=== PATIENT | female | born 1965 | race Caucasian/White ===

== ENCOUNTER 2023-08-14 21:04 | Inpatient (IN) | payer OTHER, MEDICAID, SELFPAY ==
[2023-08-14 21:16] VITALS: BP 186/82; PULSE 94; RESP 18; TEMP 36.9; O2SAT 99; BMI 26.5
--- NOTE | 2023-08-14 21:41 | DI.RAD.S_ITS ---
PROCEDURE: XR FOOT RT MIN 3V INDICATIONS: redness/drainage/wound to great toe right foot TECHNIQUE: 3 views of the foot were acquired. COMPARISON: None. FINDINGS: Bones: No fractures or dislocations. No suspicious bony lesions. Plantar calcaneal spur present Soft tissues: No tibiotalar joint effusion. Diffuse soft tissue swelling about the foot IMPRESSION: No acute osseous abnormality. If symptoms persist, follow-up radiographs and/or CT or MRI may be helpful for further evaluation. Dictated by: Carmelo Guan M.D. on 08/14/2023 at 22:32 Approved by: Carmelo Guan M.D. on 08/14/2023 at 22:34
[2023-08-14 23:02] VITALS: O2SAT 97
[2023-08-14 23:03] VITALS: BP 201/93; PULSE 105; O2SAT 97
--- NOTE | 2023-08-14 23:06 | ED_ITS ---
HPI - Extremity Injury (Lower) General Chief Complaint: Extremity Injury, Lower Stated Complaint: rt foot issues, diabetic Time Seen by Provider: 08/14/23 21:17 Source: patient Mode of arrival: Ambulatory History of Present Illness HPI Narrative: 58-year-old female nonsmoker with history of diabetes and peripheral neuropathy presents for evaluation of worsening right foot infection. She states that she bought a new pair shoes about a month ago and they were slightly undersized she developed a blister on her right great toe which subsequently became infected. She had developed some sloughing of the skin with increasing redness of the toe and was seen at an outside clinic on 08/09 and has been taking Augmentin ever since. She states that over the past few days she is started feeling fatigued with fever and chills. She is developed redness on the top of her foot and working its way up her lower leg. She went to the clinic today and was sent here for further evaluation. She states that she had some shortness of breath when in the waiting room that seemed to get worse when she laid flat for the x- rays Related Data Allergies Allergy/AdvReac Type Severity Reaction Status Date / Time levothyroxine Allergy Intermediate Muscle Pain Verified 08/14/23 21:35 Review of Systems Review of Systems Narrative: GENERAL: See HPI HEENT: Denies sinus pain, ear pain, sore throat, difficulty swallowing, dizziness. RESPIRATORY: See HPI CARDIOVASCULAR: Denies chest pain, palpitations, orthopnea, edema, GASTROINTESTINAL: Denies nausea, vomiting, abdominal pain, diarrhea, constipation, melena. : Denies dysuria, frequency, incontinence, hematuria, urinary retention. MUSCULOSKELETAL: denies weakness, joint pain, or bony pain SKIN: See HPI NEUROLOGIC: Denies weakness, headache, numbness, change in speech, confusion, seizures, incoordination. PSYCHIATRIC: No concerning psychosocial issues. 12 point review of systems is negative except for those stated above Patient History Medical History Retinopathy Neuropathy Hypothyroidism Diabetes Social History Smoking Status: Never smoker Smoking Status: Never smoker Substance Use Type: does not use Exam Narrative Exam Narrative: GENERAL: [58] year old patient appears stated age. Well-developed patient, in mild distress. HEAD: Atraumatic. Normocephalic. EYES: Pupils equal round and reactive. Extraocular motions intact. No scleral icterus. No injection or drainage. ENT: Nose without bleeding, purulent drainage. Throat without erythema, tonsillar hypertrophy or exudate. Airway patent. NECK: Trachea midline. Non tender CARDIOVASCULAR: Regular rate and rhythm without murmurs, gallops, or rubs. RESPIRATORY: Clear to auscultation. Breath sounds equal bilaterally. No wheezes, rales, or rhonchi. GASTROINTESTINAL: Abdomen soft, non-tender, nondistended. EXTREMITIES: 1+ pitting edema bilateral lower extremities, right great toe with sloughing of the skin, decreased sensation, minimal drainage surrounding erythema on the dorsum of the foot and portions of the lower leg, no significant erosions or exposure of muscle or bone BACK: Nontender without deformity or crepitance. No flank tenderness. NEURO: AOx3. SKIN: No rash or erythema of visible areas Initial Vital Signs Initial Vital Signs: Vital Signs Temperature 98.5 F 08/14/23 21:16 Pulse Rate 94 H 08/14/23 21:16 Respiratory Rate 18 08/14/23 21:16 Blood Pressure 186/82 H 08/14/23 21:16 Pulse Oximetry 99 08/14/23 21:16 Oxygen Delivery Method Room Air 08/14/23 21:16 Course Orders Ordered: ED Orders 08/14/23 21:40 Wound Culture and Gram Stain Stat 08/14/23 21:41 XR foot RT min 3V Stat 08/14/23 23:04 EKG-12 Lead Stat 08/14/23 23:12 A1C [Hemoglobin A1C% w Est Avg Glu] Stat C-Reactive Protein Quant Stat Complete Blood Count AUTO DIFF Stat Comprehensive Metabolic Panel Stat D Dimer Stat Erythrocyte Sedimentation Rate Stat Lactate (Lactic Acid) Stat Magnesium Stat NT-proBNP (BNP-Adult 18+) Stat Procalcitonin Stat Troponin & CK Cardiac Panel Stat 08/14/23 23:25 Blood Culture Stat 08/14/23 23:52 Chest [XR chest 1V] Stat 08/15/23 00:23 Urine Microscopic Stat 08/15/23 00:31 CT angio chest PE protocol Stat Discontinued Medications Furosemide (Furosemide 40 Mg/4 Ml Vial) 40 mg IV NOW ONE Stop: 08/15/23 00:29 Last Admin: 08/15/23 00:31 Dose: 40 mg Documented By: Piperacillin Sod/Tazobactam (Sod 4.5 gm/ Sodium Chloride) 100 mls @ 200 mls/hr IV NOW ONE Stop: 08/14/23 23:04 Last Infusion: 08/15/23 00:03 Dose: Infused Documented By: Admin: 08/14/23 23:28 Dose: 200 mls/hr Documented By: Vancomycin HCl/Dextrose (Vancomycin) 1,500 mg in 300 mls @ 200 mls/hr IV NOW ONE Stop: 08/15/23 00:32 Last Admin: 08/15/23 00:04 Dose: 200 mls/hr Documented By: Sodium Chloride (Normal Saline 0.9%) 1,973.13 mls @ 657.71 mls/hr 30 ml/kg infuse over 3 hr (1973.13 ml) IV NOW ONE Stop: 08/15/23 02:02 Last Infusion: 08/15/23 00:32 Dose: Infused Documented By: Infusion: 08/15/23 00:31 Dose: 0 mls/hr Documented By: Admin: 08/14/23 23:10 Dose: 657.71 mls/hr Documented By: Vital Signs Vital signs: Vital Signs - 8 hr 08/14/23 21:16 08/14/23 23:02 08/14/23 23:03 Temperature 98.5 F Pulse Rate 94 H Respiratory Rate 18 Blood Pressure 186/82 H 201/93 H Pulse Oximetry 99 97 Oxygen Delivery Method Room Air Oxygen Flow Rate 08/14/23 23:03 08/14/23 23:16 08/14/23 23:30 Temperature 99.1 F Pulse Rate 105 H 105 H Respiratory Rate Blood Pressure Pulse Oximetry 97 98 Oxygen Delivery Method Oxygen Flow Rate 08/14/23 23:31 08/14/23 23:31 08/15/23 00:00 Temperature Pulse Rate 106 H 113 H Respiratory Rate 20 27 H Blood Pressure 184/86 H Pulse Oximetry 98 96 Oxygen Delivery Method Room Air Oxygen Flow Rate 08/15/23 00:00 08/15/23 00:05 08/15/23 00:27 Temperature Pulse Rate Respiratory Rate 26 H Blood Pressure 173/82 H 198/87 H Pulse Oximetry 88 L Oxygen Delivery Method Room Air Oxygen Flow Rate 08/15/23 00:27 08/15/23 00:30 08/15/23 00:30 Temperature Pulse Rate 117 H 120 H Respiratory Rate 33 H 34 H Blood Pressure 189/83 H Pulse Oximetry 96 93 Oxygen Delivery Method Nasal Cannula Oxygen Flow Rate 2 08/15/23 01:20 08/15/23 01:22 08/15/23 01:22 Temperature Pulse Rate 120 H 115 H Respiratory Rate 24 Blood Pressure 193/91 H Pulse Oximetry 99 100 Oxygen Delivery Method Nasal Cannula Oxygen Flow Rate 2 08/15/23 01:30 08/15/23 01:30 08/15/23 01:45 Temperature Pulse Rate 112 H 113 H Respiratory Rate 21 23 Blood Pressure 184/88 H Pulse Oximetry 99 95 Oxygen Delivery Method Nasal Cannula Room Air Oxygen Flow Rate 2 MDM - Extremity Injury (Lower) Lab Data 08/14/23 23:12 08/14/23 23:12 Labs: Lab Results 08/14/23 08/15/23 Range/Units 23:12 00:23 WBC 11.8 H (4.5-11.0) X10^3/uL RBC 3.77 L (4.0-5.2) X10^6/uL Hgb 10.4 L (12.0-16.0) g/dL Hct 31.0 L (36-46) % MCV 82.4 (80-100) fL MCH 27.5 (26-34) PG MCHC 33.4 (30-36) % RDW 13.8 (11.6-14.8) % Plt Count 292 (150-400) X10^3/uL Neut % (Auto) 72.3 (50-75) % Lymph % (Auto) 18.7 L (25-40) % [place] % (Auto) 7.1 (3-14) % Eos % (Auto) 0.8 L (2-4) % Baso % (Auto) 1.1 (0-2) % Neut # (Auto) 8600 H (7442-2006) /uL Lymph # (Auto) 2200 (7694-8245) /uL [place] # (Auto) 800 (0-900) /uL Eos # (Auto) 100 (0-450) /uL Baso # (Auto) 100 (0-100) /uL ESR 80 H (0-20) MM/HR D-Dimer 615 H (<500) ng/ml Sodium 134 L (137-145) mmol/L Potassium 4.6 (3.4-5.1) mmol/L Chloride 97 L (98-107) mmol/L Carbon Dioxide 28 (22-32) mmol/L BUN 28 H (7-17) mg/dL Creatinine 0.85 (0.52-1.04) mg/dL Estimated GFR > 60 (>60) mL/min BUN/Creatinine Ratio 32.9 H (6-22) Glucose 131 H (80-110) mg/dL Lactate 1.1 (0.7-2.1) mmol/L Calcium 9.2 (8.4-10.2) mg/dL Magnesium 1.9 (1.6-2.3) mg/dL Total Bilirubin 0.2 (0.2-1.3) mg/dL AST 20 (14-36) IU/L ALT 27 (<35) IU/L Alkaline Phosphatase 106 (38-126) U/L Total Creatine Kinase 25 L (30-135) U/L Troponin I < 0.012 (0.01-0.034) ng/mL C-Reactive Protein 4.6 H (<1.0) mg/dL NT-Pro-B Natriuret Pep 718 H (<125) pg/mL Total Protein 7.2 (6.3-8.2) g/dL Albumin 3.6 (3.5-5.0) g/dL Globulin 3.6 (1.7-4.1) g/dL Albumin/Globulin Ratio 1.0 (1.0-2.8) Procalcitonin 0.12 (<0.5) ng/mL Urine RBC None seen (0-5/HPF) Urine WBC None seen (0-5/HPF) Ur Squamous Epith Cells 0-1 /hpf (0-5/HPF) Urine Bacteria None seen (None) Ur Culture Indicated? Cult not indicated Point of Care Testing Glucose POC 185 Urine Dip Bedside Urine Glucose Negative Bedside Urine Bilirubin - Negative Bedside Urine Ketone - Negative Urine Specific [place] 1.015 Bedside Urine Occult Blood - Negative Bedside Urine pH 6 Bedside Urine Protein + 30 Bedside Urine Urobilinogen - Negative Bedside Urine Nitrite - Negative Bedside Urine Leukocytes - Negative Esterase MDM Narrative Medical decision making narrative: [58] year old patient presents with worsening infectious process of the right great toe and foot despite outpatient therapy Multiple etiologies for patient's symptoms considered including, but not limited to: [Osteomyelitis versus cellulitis versus pneumonia versus CHF versus PE versus other] Prior Charts reviewed in our EMR Primary Historian: patient Labs reviewed and interpreted by myself: Slight leukocytosis with relative left shift, slight elevation in BNP, D-dimer is slightly above cutoff inflammatory markers elevated Imaging reviewed:, x-ray of toe shows no obvious osteomyelitis or subcu air, chest x-ray consistent with pulmonary edema, CT angiogram of chest shows no PE but some evidence of pulmonary edema Consultations: Discussed with hospitalist Patient requires hospitalization for treatment of worsening right great toe and foot cellulitis despite outpatient therapies, no obvious osteomyelitis or abscess but she will require hospitalization with IV antibiotics. Over the course of the visit she became increasingly short of breath which is likely due to fluid administration. Sepsis fluids were held, she was diuresed and showed improvement. CT angiogram performed and there is no evidence of pulmonary embolism or focal infiltrate Discharge Plan Departure Patient Disposition: Admitted As Inpatient Clinical Impression: Cellulitis of foot, right, Failure of outpatient treatment Admit Date/Time: 08/15/23 02:16
[2023-08-14] MEDS: SODIUM CHLORIDE 0.9% 1,973.13 ML 657.71 ML IV (23:10)
[2023-08-14 23:16] VITALS: TEMP 37.3
[2023-08-14 23:22] LABS: Add Manual Diff / Slide Review NO; Basophils Absolute Auto 100 /uL (0-100); Basophils Percent Auto 1.1 % (0-2); Eosinophils Absolute Auto 100 /uL (0-450); Eosinophils Percent Auto 0.8 % (2-4); Hemoglobin 10.4 g/dL (12.0-16.0); Lymphocytes Absolute Auto 2200 /uL (1100-4500); Lymphocytes Percent Auto 18.7 % (25-40); Mean Corpuscular HGB Conc 33.4 % (30-36); Mean Corpuscular Hemoglobin 27.5 PG (26-34); Mean Corpuscular Volume 82.4 fL (80-100); Monocytes Absolute Auto 800 /uL (0-900); Monocytes Percent Auto 7.1 % (3-14); Neutrophils Absolute Auto 8600 /uL (1500-7000); Neutrophils Percent Auto 72.3 % (50-75); Platelet Count 292 X10^3/uL (150-400); Red Blood Cell Count 3.77 X10^6/uL (4.0-5.2); Red Cell Distribution Width 13.8 % (11.6-14.8); White Blood Cell Count 11.8 X10^3/uL (4.5-11.0)
[2023-08-14] MEDS: PIPERACILLIN/TAZO 4.5 GM in SODIUM CHLORIDE 0.9% 100 ML IV (23:28)
[2023-08-14 23:30] VITALS: PULSE 105; O2SAT 98
[2023-08-14 23:31] VITALS: BP 184/86; PULSE 106; RESP 20; O2SAT 98
[2023-08-14 23:33] LABS: Alanine Aminotransferase 27 IU/L (<35); Albumin 3.6 g/dL (3.5-5.0); Alkaline Phosphatase 106 U/L (38-126); Aspartate Aminotransferase 20 IU/L (14-36); BUN Creatinine Ratio 32.9 (6-22); Bilirubin Total 0.2 mg/dL (0.2-1.3); Blood Urea Nitrogen 28 mg/dL (7-17); Calcium 9.2 mg/dL (8.4-10.2); Carbon Dioxide 28 mmol/L (22-32); Chloride 97 mmol/L (98-107); Creatine Kinase 25 U/L (30-135); Estimated Glomerular Filt Rate > 60 mL/min (>60); Globulin 3.6 g/dL (1.7-4.1); Glucose 131 mg/dL (80-110); HEMOLYSIS < 15 (0-50); Magnesium 1.9 mg/dL (1.6-2.3); Potassium 4.6 mmol/L (3.4-5.1); Sodium 134 mmol/L (137-145); Total Protein 7.2 g/dL (6.3-8.2)
[2023-08-14 23:34] LABS: Lactate (Lactic Acid) 1.1 mmol/L (0.7-2.1)
[2023-08-14 23:36] LABS: D Dimer 615 ng/ml (<500)
--- NOTE | 2023-08-14 23:44 | PC.NURSE ---
Pt's right leg redness marked with skin marker. Time and dated. Pedal pulses dopplered and marked bilaterally.
[2023-08-14 23:45] LABS: NT-proBNP (BNP-Adult 18+) 718 pg/mL (<125); Troponin I < 0.012 ng/mL (0.01-0.034)
[2023-08-14 23:46] LABS: Erythrocyte Sedimentation Rate 80 MM/HR (0-20)
[2023-08-14 23:50] LABS: Procalcitonin 0.12 ng/mL (<0.5)
--- NOTE | 2023-08-14 23:52 | DI.RAD.S_ITS ---
PROCEDURE: XR CHEST 1V INDICATIONS: Shortness of breath TECHNIQUE: One view of the chest was acquired. COMPARISON: None. FINDINGS: Surgical changes and devices: None. Lungs and pleura: Bilateral interstitial and hazy bibasilar opacities. No pleural effusion or pneumothorax Mediastinum: Cardiac silhouette is enlarged Bones and chest wall: No suspicious bony lesions. Overlying soft tissues appear unremarkable. IMPRESSION: Findings compatible with fluid overload/CHF. Viral or atypical infection can result in similar appearing pulmonary opacities Dictated by: Carmelo Guan M.D. on 08/15/2023 at 0:29 Approved by: Carmelo Guan M.D. on 08/15/2023 at 0:31
[2023-08-15] VITALS (17 sets, daily range): BP systolic 113–198; BP diastolic 59–92; PULSE 59–120; RESP 16–34; TEMP 36.4–37; O2SAT 88–100; BMI 27.3
[2023-08-15] MEDS: VANCOMYCIN 1,500 MG/300 ML PIGGYBACK 200 MG IV (00:04)
[2023-08-15 00:13] LABS: C-Reactive Protein Quant 4.6 mg/dL (<1.0)
[2023-08-15] MEDS: FUROSEMIDE 40 MG/4 ML VIAL IV ×3 (00:31→21:01)
--- NOTE | 2023-08-15 00:31 | DI.CT.S_ITS ---
PROCEDURE: CT ANGIO CHEST PE PROTOCOL INDICATIONS: Shortness of breath, critical Dimer TECHNIQUE: After the administration of intravenous contrast, 2 mm thick sections acquired from the pulmonary apices to the posterior costophrenic angles. 3-dimensional maximum intensity projection (MIP) coronal and sagittal reformats were then acquired through the thorax. For radiation dose reduction, the following was used: automated exposure control, adjustment of mA and/or kV according to patient size. COMPARISON: None. FINDINGS: Pulmonary arteries: The main pulmonary artery is enlarged measuring 3.1 cm. No pulmonary embolism identified. Lungs and pleura: Interlobular septal thickening and mild basilar predominant ground-glass opacities. No pleural effusion. Few pulmonary nodules present for example an 8 mm nodule at the lingula (5/148) Mediastinum: No pericardial effusion. Possible cardiomegaly. Possible wall thickening mid and lower esophagus. Bones and chest wall: Multilevel degenerative change of the visualized spine. Abdomen: Visualized upper abdominal solid organs appear normal in the early arterial phase of enhancement. IMPRESSION: 1. No pulmonary embolism identified. 2. Enlargement of the main pulmonary artery, a finding which can be seen in the setting of pulmonary hypertension. 3. Findings compatible with pulmonary edema. 4. Few pulmonary nodules are present. Follow-up CT chest recommended in 3-6 months per Fleischner society guidelines. 5. Possible wall thickening mid and lower esophagus, nonspecific, correlation for etiologies such as reflux esophagitis may be helpful Dictated by: Carmelo Guan M.D. on 08/15/2023 at 1:40 Approved by: Carmelo Guan M.D. on 08/15/2023 at 1:51
--- NOTE | 2023-08-15 00:44 | PC.NURSE ---
This RN was discontinuing zosyn and preparing to administer vancomyocin, when pt began to c/o worsening shortness of breath. Pt noted to be tachypneic, reports she is unable to lay down or sit up comfortably due to shortness of breath and tightness in abdomen. This RN immediately stopped IV fluid bolus. Oxygen placed 2L nasal cannula due to patient desating to 88%. HR increasing to 110s. Pt has received a total of 1L. Slight crackles noted in bases. Pt also noted to have some abdominal distention. RN notified provider. Lasix ordered and administered per DEC. Provider to the bedside to assess patient as well. Pt standing at the bedside. Refusing to lay on stretcher. Pt remains in view of RN station.
[2023-08-15 00:53] LABS: Bacteria Urine None Seen; Culture Indicated Urine Cult Not Indicated; RBC Urine None Seen (0-5/HPF); Squamous Epithelial Cell Urine 0-1 /HPF (0-5/HPF); WBC Urine None Seen (0-5/HPF)
--- NOTE | 2023-08-15 01:24 | PC.NURSE ---
Pt assisted back to bed after CT scan. Pt reports shortness of breath is much better at this time after episodes of diuresing. Pt able to lay on stretcher with HOB elevated. Call light remains in reach. Continues to be on 2L nasal cannula for comfort. Updated on plan of care. Declines any other needs.
[2023-08-15] MEDS: ACETAMINOPHEN 325 MG TABLET 975 MG PO (02:25)
--- NOTE | 2023-08-15 04:03 | PM.HP.1 ---
History of Present Illness History of Present Illness Date Patient Seen: 08/15/23 Time Patient Seen: 04:04 Chief complaint: rt foot issues, diabetic Narrative: The pt is a 58 yo poorly controlled diabetic who started having a blister on the outside of the her great toe about one month ago. She started to feel weak, chills and myalgias on the of this month and went to her local ER, [facility]. They said she was dehydrated and gave her some fluids and told her her blood sugars were way too high. She soaked the foot one day due to worsening swelling and said the blister and some tissue came off. She then went to an urgent care on the where she was started on augmentin which she has been taking. The whole foot now has become red and swollen she came to our ER tonight for evaluation. The pt has numbness in the foot, denies tobacco use, normally walks without assitive devices and her last A1C was >14 last month. [facility] Medical History Retinopathy Neuropathy Hypothyroidism Diabetes Social History household members: none Smoking Status: Never smoker alcohol intake: never Meds Home Medications and Allergies Home Medications Medication Instructions Recorded Confirmed Type B Complex-Vitamin B12 See Protocol PO DAILY 08/15/23 08/15/23 History [place]'s wort 300 mg tablet 300 mg PO DAILY 08/15/23 08/15/23 History insulin glargine 100 unit/mL (3 20 unit SUBCUT ONCE PM 08/15/23 08/15/23 History mL) subcutaneous pen (Lantus Solostar U-100 Insulin) insulin lispro 200 unit/mL (3 mL) See Protocol SUBCUT ACHS 08/15/23 08/15/23 History subcutaneous pen (Humalog KwikPen U-200 Insulin) metformin 500 mg tablet 500 mg PO BID 08/15/23 08/15/23 History thyroid (pork) 90 mg tablet 90 mg PO DAILY 08/15/23 08/15/23 History ([place] Thyroid) Allergies Allergy/AdvReac Type Severity Reaction Status Date / Time levothyroxine Allergy Intermediate Muscle Pain Verified 08/14/23 21:35 Exam Vital Signs (past 8 hours): - 08/14/23 21:16 08/14/23 23:02 08/14/23 23:03 Temperature 98.5 F Pulse Rate 94 H Respiratory Rate 18 Blood Pressure 186/82 H 201/93 H Pulse Oximetry 99 97 Oxygen Delivery Method Room Air Oxygen Flow Rate 08/14/23 23:03 08/14/23 23:16 08/14/23 23:30 Temperature 99.1 F Pulse Rate 105 H 105 H Respiratory Rate Blood Pressure Pulse Oximetry 97 98 Oxygen Delivery Method Oxygen Flow Rate 08/14/23 23:31 08/14/23 23:31 08/15/23 00:00 Temperature Pulse Rate 106 H 113 H Respiratory Rate 20 27 H Blood Pressure 184/86 H Pulse Oximetry 98 96 Oxygen Delivery Method Room Air Oxygen Flow Rate 08/15/23 00:00 08/15/23 00:05 08/15/23 00:27 Temperature Pulse Rate Respiratory Rate 26 H Blood Pressure 173/82 H 198/87 H Pulse Oximetry 88 L Oxygen Delivery Method Room Air Oxygen Flow Rate 08/15/23 00:27 08/15/23 00:30 08/15/23 00:30 Temperature Pulse Rate 117 H 120 H Respiratory Rate 33 H 34 H Blood Pressure 189/83 H Pulse Oximetry 96 93 Oxygen Delivery Method Nasal Cannula Oxygen Flow Rate 2 08/15/23 01:20 08/15/23 01:22 08/15/23 01:22 Temperature Pulse Rate 120 H 115 H Respiratory Rate 24 Blood Pressure 193/91 H Pulse Oximetry 99 100 Oxygen Delivery Method Nasal Cannula Oxygen Flow Rate 2 08/15/23 01:30 08/15/23 01:30 08/15/23 01:44 Temperature Pulse Rate 112 H 117 H Respiratory Rate 21 17 Blood Pressure 184/88 H Pulse Oximetry 99 93 Oxygen Delivery Method Nasal Cannula Oxygen Flow Rate 2 08/15/23 01:44 08/15/23 01:45 08/15/23 02:00 Temperature Pulse Rate 113 H Respiratory Rate 23 Blood Pressure 166/79 H Pulse Oximetry 95 96 Oxygen Delivery Method Room Air Oxygen Flow Rate 08/15/23 02:12 08/15/23 02:12 08/15/23 02:30 Temperature Pulse Rate 113 H Respiratory Rate 17 Blood Pressure 177/79 H 187/81 H Pulse Oximetry 97 Oxygen Delivery Method Oxygen Flow Rate 08/15/23 02:30 08/15/23 02:40 08/15/23 03:32 Temperature 97.7 F Pulse Rate 111 H 111 H Respiratory Rate 21 Blood Pressure 184/90 H Pulse Oximetry 97 96 Oxygen Delivery Method Room Air Room Air Oxygen Flow Rate 0 Oxygen Delivery Method Room Air Oxygen Flow Rate 0 Const General: cooperative and comfortable Resp Auscultation: clear to auscultation bilaterally Cardio Rate: regular rate Rhythm: regular rhythm GI Inspection: obesity Auscultation: normal bowel sounds Skin Other: Rt great toe with erythema extending dorsally onto the foot and ankle Extrem General: full ROM and edema Objective Labs 08/14/23 23:12 08/14/23 23:12 Labs: Laboratory Results - last 24 hr 08/14/23 08/15/23 23:12 00:23 WBC 11.8 H RBC 3.77 L Hgb 10.4 L Hct 31.0 L MCV 82.4 MCH 27.5 MCHC 33.4 RDW 13.8 Plt Count 292 Neut % (Auto) 72.3 Lymph % (Auto) 18.7 L [place] % (Auto) 7.1 Eos % (Auto) 0.8 L Baso % (Auto) 1.1 Neut # (Auto) 8600 H Lymph # (Auto) 2200 [place] # (Auto) 800 Eos # (Auto) 100 Baso # (Auto) 100 ESR 80 H D-Dimer 615 H Sodium 134 L Potassium 4.6 Chloride 97 L Carbon Dioxide 28 BUN 28 H Creatinine 0.85 Estimated GFR > 60 BUN/Creatinine Ratio 32.9 H Glucose 131 H Lactate 1.1 Calcium 9.2 Magnesium 1.9 Total Bilirubin 0.2 AST 20 ALT 27 Alkaline Phosphatase 106 Total Creatine Kinase 25 L Troponin I < 0.012 C-Reactive Protein 4.6 H NT-Pro-B Natriuret Pep 718 H Total Protein 7.2 Albumin 3.6 Globulin 3.6 Albumin/Globulin Ratio 1.0 Procalcitonin 0.12 Urine RBC None seen Urine WBC None seen Ur Squamous Epith Cells 0-1 /hpf Urine Bacteria None seen Ur Culture Indicated? Cult not indicated Assessment & Plan Assessment and plan (1) Cellulitis of foot, right: Status: Acute (2) Diabetic foot ulcer associated with diabetes mellitus due to underlying condition: Status: Acute Plan WIll admit the pt to the hospitalist service, she was started on vancomycin and zosyn in the ER which we will continue, pharmacy to dose the vanco, will monitor for toxicities of the abx, on consistent carb diet, accuchecks QAC & HS, insulin high does sliding scale, checking A1C currently. Will reassess in am but may need general surgery to see for possible debridement. I spoke with the ER provider and agree with admission, labs reviewed, with a WBC of 11, normal electrolytes.
--- NOTE | 2023-08-15 04:05 | PC.WOUNDPHOT ---
^ border drawn in ED
[2023-08-15] MEDS: PIPERACILLIN/TAZO 4.5 GM in SODIUM CHLORIDE 0.9% 100 ML IV ×3 (04:44→20:57)
[2023-08-15] MEDS: PANTOPRAZOLE DR 20 MG TABLET PO (05:01)
[2023-08-15 05:10] LABS: Add Manual Diff / Slide Review NO; Basophils Absolute Auto 100 /uL (0-100); Basophils Percent Auto 0.4 % (0-2); Eosinophils Absolute Auto 100 /uL (0-450); Eosinophils Percent Auto 0.5 % (2-4); Hematocrit 32.7 % (36-46); Hemoglobin 10.8 g/dL (12.0-16.0); Lymphocytes Absolute Auto 1700 /uL (1100-4500); Lymphocytes Percent Auto 14.4 % (25-40); Mean Corpuscular HGB Conc 33.1 % (30-36); Mean Corpuscular Hemoglobin 27.4 PG (26-34); Mean Corpuscular Volume 82.9 fL (80-100); Monocytes Absolute Auto 800 /uL (0-900); Monocytes Percent Auto 6.9 % (3-14); Neutrophils Absolute Auto 9400 /uL (1500-7000); Neutrophils Percent Auto 77.8 % (50-75); Platelet Count 285 X10^3/uL (150-400); Red Blood Cell Count 3.94 X10^6/uL (4.0-5.2); Red Cell Distribution Width 13.4 % (11.6-14.8); White Blood Cell Count 12.1 X10^3/uL (4.5-11.0)
[2023-08-15 05:27] LABS: BUN Creatinine Ratio 36.8 (6-22); Blood Urea Nitrogen 25 mg/dL (7-17); Calcium 8.6 mg/dL (8.4-10.2); Carbon Dioxide 28 mmol/L (22-32); Chloride 97 mmol/L (98-107); Estimated Glomerular Filt Rate > 60 mL/min (>60); Glucose 208 mg/dL (80-110); HEMOLYSIS < 15 (0-50); Sodium 136 mmol/L (137-145)
--- NOTE | 2023-08-15 05:37 | PC.ADMIT ---
Patient arrived onto the floor from ED approximately 0300. Patient is AxOx4, denies pain, SOB, N/V. Hypertensive (184/90), tachycardic (111), O2 sats 96% on RA. Patient received lasix in the ED, voided approximately 4 L since. BLE pitting edema 4+, R-leg redness contained within drawn border, R-toe open to air. Wound photos uploaded. Patient is SBA, tolerates ambulation well. IV abx infusing. Educated patient on use of call light and oriented to room, patient verbalized understanding, call light within reach. [id number] Admission Note: The patient,Mireille Joyce,58 y/o, was given written information regarding hospital policies, unit procedures and contact persons. Patient's smoking status: Never smoker. Vital Signs - 8 hr 08/14/23 23:02 08/14/23 23:03 08/14/23 23:03 Temperature Pulse Rate 105 H Respiratory Rate Blood Pressure 201/93 H Pulse Oximetry 97 97 Oxygen Delivery Method Oxygen Flow Rate 08/14/23 23:16 08/14/23 23:30 08/14/23 23:31 Temperature 99.1 F Pulse Rate 105 H Respiratory Rate Blood Pressure 184/86 H Pulse Oximetry 98 Oxygen Delivery Method Oxygen Flow Rate 08/14/23 23:31 08/15/23 00:00 08/15/23 00:00 Temperature Pulse Rate 106 H 113 H Respiratory Rate 20 27 H Blood Pressure 173/82 H Pulse Oximetry 98 96 Oxygen Delivery Method Room Air Oxygen Flow Rate 08/15/23 00:05 08/15/23 00:27 08/15/23 00:27 Temperature Pulse Rate 117 H Respiratory Rate 26 H 33 H Blood Pressure 198/87 H Pulse Oximetry 88 L 96 Oxygen Delivery Method Room Air Oxygen Flow Rate 08/15/23 00:30 08/15/23 00:30 08/15/23 01:20 Temperature Pulse Rate 120 H 120 H Respiratory Rate 34 H Blood Pressure 189/83 H Pulse Oximetry 93 99 Oxygen Delivery Method Nasal Cannula Oxygen Flow Rate 2 08/15/23 01:22 08/15/23 01:22 08/15/23 01:30 Temperature Pulse Rate 115 H Respiratory Rate 24 Blood Pressure 193/91 H 184/88 H Pulse Oximetry 100 Oxygen Delivery Method Nasal Cannula Oxygen Flow Rate 2 08/15/23 01:30 08/15/23 01:44 08/15/23 01:44 Temperature Pulse Rate 112 H 117 H Respiratory Rate 21 17 Blood Pressure 166/79 H Pulse Oximetry 99 93 Oxygen Delivery Method Nasal Cannula Oxygen Flow Rate 2 08/15/23 01:45 08/15/23 02:00 08/15/23 02:12 Temperature Pulse Rate 113 H Respiratory Rate 23 Blood Pressure 177/79 H Pulse Oximetry 95 96 Oxygen Delivery Method Room Air Oxygen Flow Rate 08/15/23 02:12 08/15/23 02:30 08/15/23 02:30 Temperature Pulse Rate 113 H 111 H Respiratory Rate 17 Blood Pressure 187/81 H Pulse Oximetry 97 97 Oxygen Delivery Method Room Air Oxygen Flow Rate 08/15/23 02:40 08/15/23 03:32 Temperature 97.7 F Pulse Rate 111 H Respiratory Rate 21 Blood Pressure 184/90 H Pulse Oximetry 96 Oxygen Delivery Method Room Air Oxygen Flow Rate 0
[2023-08-15 05:45] LABS: Hemoglobin A1C% w Est Avg Glu > 14.0 % (4.0-6.0)
[2023-08-15] MEDS: INSULIN LISPRO 100 UNIT/ML 3ML VIAL SUBCUT ×4 (08:06→21:27)
[2023-08-15] MEDS: ENOXAPARIN 40 MG/0.4 ML SYRINGE SUBCUT (08:07)
--- NOTE | 2023-08-15 09:15 | DI.ECHO.S_ITS ---
[facility] +---------+ : : [address] : : : : [id number] : : : : Phone: [phone]+ Echocardiogram Report + + :Name: TRINH FONTANEZ Study Date: 08/15/2023 Height: 62 in : :[facility] ReadingLocation: Weight: 149 lb : : Gender: Female BSA: 1.7 m2 : :: 1965 Age: 58 yrs BP: 175/92 mmHg: :Reason For Study: EDEMA, RULE OUT CONGESTIVE HEART FAILURE : :Ordering Physician: AMANDEEP, : :IRAIDA Miranda Performed By: Mica Bolivar : :Referring: IRAIDA BERNSTEIN : + + Interpretation Summary Normal sinus rhythm. Normal LV size and mildly increased wall thickness. Normal wall motion and LV systolic function. Ejection fraction 60-65%. Stage II diastolic dysfunction. There is aneurysmal interatrial septum but without obvious PFO based on color- flow Doppler. Normal chamber sizes. Aortic valve leaflets are mildly thickened and calcified. Otherwise there are no significant valvular abnormalities. No prior study available for comparison. Procedure: A two-dimensional transthoracic echocardiogram with color flow and Doppler was performed. The study quality was technically adequate. There is no prior echocardiogram noted for this patient. The patient was in sinus rhythm with heart rates between 62-68 bpm during the exam. Left Ventricle: The left ventricle is normal in size. There is mild concentric left ventricular hypertrophy. The ejection fraction is estimated to be 60-65%. Right Ventricle: The right ventricle is borderline dilated. The right ventricle is at the upper limits of normal in size. Atria: The left atrium is borderline dilated. Right atrial size is normal. There is no Doppler evidence for an interatrial shunt. The atrial septum is aneurysmal. Mitral Valve: There is mild mitral annular calcification. The mitral valve leaflets appear mildly thickened, but open well. There is trace mitral regurgitation. Aortic Valve: The aortic valve is trileaflet. The aortic valve opens well. The aortic valve is slightly calcified. There is no aortic valve stenosis. No aortic regurgitation is present. Tricuspid Valve: There is no tricuspid annular calcification. There is mild tricuspid regurgitation. Pulmonic Valve: The pulmonic valve leaflets are thin and pliable; valve motion is normal. There is no pulmonic valvular regurgitation. Great Vessels: The aortic root is normal size. The dimensions of the ascending aorta are normal. The IVC is dilated (diameter is greater than 2.1 cm) and it collapses less than 50% with a sniff. This suggests a high right atrial pressure of 15 mm Hg. Pericardium/ Pleura There is no pericardial effusion. There is no pleural effusion. MMode/2D Measurements & Calculations LVIDd: 4.5 cm LVOT diam: 2.0 cm LVIDs: 2.7 cm Ao root diam: 3.2 cm FS: 39.4 % asc Aorta Diam: 2.9 cm IVSd: 1.1 cm LVPWd: 1.00 cm LV freedman. diameter/BSA (cm/m^2): 2.7 LV sys. diameter/BSA (cm/m^2): 1.6 LA A2 area: 19.7 cm2 RA long axis: 4.7 cm LA A4 area: 18.4 cm2 RA area: 15.7 cm2 LA length (vol): 5.4 cm RA vol: 44.9 ml LA vol: 57.4 ml RA : 26.6 ml/m2 LA vol index: 34.0 ml/m2 IVC diam: 2.3 cm RVD1 (basal): 4.3 cm RVD2 (mid): 2.9 cm TAPSE: 2.7 cm Doppler Measurements & Calculations Ao V2 max: 186.9 cm/sec LVOT Max Zhang: 128.0 cm/sec Ao V2 mean: 145.0 cm/sec LV V1 max P.6 mmHg Ao max P.0 mmHg LV V1 VTI: 23.4 cm Ao mean P.0 mmHg SABIHA(I,D): 2.0 cm2 Ao V2 VTI: 37.5 cm SABIHA(V,D): 2.2 cm2 sev ratio: 0.62 SABIHA indexed to BSA (cm^2/m^2): 1.2 MV E max zhang: 122.5 cm/sec PA V2 max: 102.5 cm/sec MV A max zhang: 101.6 cm/sec PA V2 mean: 68.9 cm/sec MV E/A: 1.2 PA mean P.1 mmHg Med Peak E' Zhang: 6.0 cm/sec PA pr(Accel): 34.5 mmHg E/E' med: 20.3 Lat Peak E' Zhang: 7.3 cm/sec E/E' lat: 16.9 E/e' average: 18.6 MV dec time: 0.25 sec MVA(VTI): 1.6 cm2 MV V2 mean: 67.8 cm/sec SV(LVOT): 73.5 ml MV mean P.3 mmHg MV V2 VTI: 44.7 cm Electronically signed by: Cayla Richardson M.D. on Reading Physician:08/15/2023 03:16 PM
--- NOTE | 2023-08-15 09:16 | P.PN_ITS ---
Subjective Subjective Interval history: Right foot looks a little better, no pain or dyspnea. Odin had chronic edema. Exam Vital Signs (past 8 hours): - 08/15/23 01:20 08/15/23 01:22 08/15/23 01:22 Temperature Pulse Rate 120 H 115 H Respiratory Rate 24 Blood Pressure 193/91 H Pulse Oximetry 99 100 Oxygen Delivery Method Nasal Cannula Oxygen Flow Rate 2 08/15/23 01:30 08/15/23 01:30 08/15/23 01:44 Temperature Pulse Rate 112 H 117 H Respiratory Rate 21 17 Blood Pressure 184/88 H Pulse Oximetry 99 93 Oxygen Delivery Method Nasal Cannula Oxygen Flow Rate 2 08/15/23 01:44 08/15/23 01:45 08/15/23 02:00 Temperature Pulse Rate 113 H Respiratory Rate 23 Blood Pressure 166/79 H Pulse Oximetry 95 96 Oxygen Delivery Method Room Air Oxygen Flow Rate 08/15/23 02:12 08/15/23 02:12 08/15/23 02:30 Temperature Pulse Rate 113 H Respiratory Rate 17 Blood Pressure 177/79 H 187/81 H Pulse Oximetry 97 Oxygen Delivery Method Oxygen Flow Rate 08/15/23 02:30 08/15/23 02:40 08/15/23 03:32 Temperature 97.7 F Pulse Rate 111 H 111 H Respiratory Rate 21 Blood Pressure 184/90 H Pulse Oximetry 97 96 Oxygen Delivery Method Room Air Room Air Oxygen Flow Rate 0 08/15/23 08:00 Temperature 97.5 F L Pulse Rate 120 H Respiratory Rate 20 Blood Pressure 175/92 H Pulse Oximetry 96 Oxygen Delivery Method Oxygen Flow Rate Oxygen Delivery Method Room Air Oxygen Flow Rate 0 Narrative Exam Narrative: NAD Lungs clear with normal effort CV RRR without M/G/R Abdomen Soft, NT/ND No rash 2+ edema Right foot is red. Right great toe red. and has a large ulcer. Objective Labs 08/15/23 04:25 08/15/23 04:25 Labs: Laboratory Results - last 24 hr 08/14/23 08/15/23 08/15/23 23:12 00:23 04:25 WBC 11.8 H 12.1 H RBC 3.77 L 3.94 L Hgb 10.4 L 10.8 L Hct 31.0 L 32.7 L MCV 82.4 82.9 MCH 27.5 27.4 MCHC 33.4 33.1 RDW 13.8 13.4 Plt Count 292 285 Neut % (Auto) 72.3 77.8 H Lymph % (Auto) 18.7 L 14.4 L [place] % (Auto) 7.1 6.9 Eos % (Auto) 0.8 L 0.5 L Baso % (Auto) 1.1 0.4 Neut # (Auto) 8600 H 9400 H Lymph # (Auto) 2200 1700 [place] # (Auto) 800 800 Eos # (Auto) 100 100 Baso # (Auto) 100 100 ESR 80 H D-Dimer 615 H Sodium 134 L 136 L Potassium 4.6 4.0 Chloride 97 L 97 L Carbon Dioxide 28 28 BUN 28 H 25 H Creatinine 0.85 0.68 Estimated GFR > 60 > 60 BUN/Creatinine Ratio 32.9 H 36.8 H Glucose 131 H 208 H Hemoglobin A1c > 14.0 H Lactate 1.1 Calcium 9.2 8.6 Magnesium 1.9 Total Bilirubin 0.2 AST 20 ALT 27 Alkaline Phosphatase 106 Total Creatine Kinase 25 L Troponin I < 0.012 C-Reactive Protein 4.6 H NT-Pro-B Natriuret Pep 718 H Total Protein 7.2 Albumin 3.6 Globulin 3.6 Albumin/Globulin Ratio 1.0 Procalcitonin 0.12 Urine RBC None seen Urine WBC None seen Ur Squamous Epith Cells 0-1 /hpf Urine Bacteria None seen Ur Culture Indicated? Cult not indicated PFSH Medical History Retinopathy Neuropathy Hypothyroidism Diabetes Social History household members: none Smoking Status: Never smoker alcohol intake: never Assessment & Plan Assessment & Plan narrative: 1. Cellulitis of foot, right, POA: Status: Acute 2. Diabetic foot ulcer associated with diabetes mellitus due to underlying condition: Status: Acute 3. Leg and pulmonary edema, POA -Cont IV abx -Wound care -consider MRI foot -ECHO to assess LVEF -IV lasix for diuresis. Time Spent With Patient Time with patient: 30 to 49 minutes with 50% spent counseling/coordinating care
[2023-08-15] MEDS: VANCOMYCIN 750 MG/150 ML PIGGYBACK 150 MG IV ×2 (09:26→16:43)
[2023-08-15] MEDS: METOPROLOL IR 25 MG TABLET 12.5 MG PO (09:26)
[2023-08-15] MEDS: THYROID, PORK 30 MG TABLET 90 MG PO (09:26)
--- NOTE | 2023-08-15 10:44 | PC.NURSE ---
Addendum entered by Mckenna Rob R.N. 08/15/23 13:13: Photos taken after MD Perez at bedside to debride R great toe wound. Camera having trouble focusing. Took multiple photos, these were the clearest. ply bander and MD Perez at bedside and dressed wound with hydrafera blue dressing + optifoam. Asked that wound dressing be changed every 2 days. Original Note: Day shift: Notified MD Anglin of patient's hypertension and tachycardia. He ordered PO metoprolol - given to patient. Also sent home thyoid medication to pharmacy for patient to take while in the hospital.
--- NOTE | 2023-08-15 13:49 | P.CONS_ITS ---
History of Present Illness Consult details Date Patient Seen: 08/15/23 Time Patient Seen: 12:00 Chief complaint: rt foot issues, diabetic Narrative: The patient is a 58-year-old female with poorly controlled Diabetes mellitus and neuropathy who was admitted to the hospital earlier today with a right diabetic foot infection. She reports having an ulcer on her right great toe the 1st began as a blister about 1 month ago. The patient has taken some oral antibiotics without any significant improvement. She reports that the ulcer is tender however she has not noted any drainage from the area. She has noted redness and swelling of the right great toe and the dorsum of her right foot. The patient denies having any fever or chills. Patient has a good appetite and denies any other recent changes in her overall health. Hemoglobin A1c was> 14. The patient does not smoke cigarettes. She has no prior history of having any diabetic foot ulcers in the past. The patient does not use diabetic footwear. The patient was admitted to the hospital for IV antibiotic therapy and a wound care consult was ordered. Foot x-ray was negative for osteomyelitis. Meds Home Medications and Allergies Home Medications Medication Instructions Recorded Confirmed Type B Complex-Vitamin B12 See Protocol PO DAILY 08/15/23 08/15/23 History Cumings's wort 300 mg tablet 300 mg PO DAILY 08/15/23 08/15/23 History insulin glargine 100 unit/mL (3 20 unit SUBCUT ONCE PM 08/15/23 08/15/23 History mL) subcutaneous pen (Lantus Solostar U-100 Insulin) insulin lispro 200 unit/mL (3 mL) See Protocol SUBCUT ACHS 08/15/23 08/15/23 History subcutaneous pen (Humalog KwikPen U-200 Insulin) metformin 500 mg tablet 500 mg PO BID 08/15/23 08/15/23 History thyroid (pork) 90 mg tablet 90 mg PO DAILY 08/15/23 08/15/23 History (Vona Thyroid) Allergies Allergy/AdvReac Type Severity Reaction Status Date / Time levothyroxine Allergy Intermediate Muscle Pain Verified 08/14/23 21:35 Review of Systems Review of Systems Narrative: Negative for any recent changes in overall health Cardiovascular Comments: No chest pain Respiratory Comments: No shortness of breath Exam Vital Signs (past 8 hours): - 08/15/23 08:00 08/15/23 11:29 Temperature 97.5 F L Pulse Rate 120 H 65 Respiratory Rate 20 Blood Pressure 175/92 H 113/65 Pulse Oximetry 96 Oxygen Delivery Method Room Air Oxygen Flow Rate 0 Const Other: Well-developed well-nourished female who is alert and oriented and in no apparent distress [facility] Other: normocephalic Resp Other: no labored respirations Skin Other: Erythema right foot, diabetic ulcer right great toe Neuro Other: Decreased lower extremity sensation Extrem Other: Edema dorsum of right foot and ankle, no crepitance or fluctuance noted Objective Labs 08/15/23 04:25 08/15/23 04:25 Labs: Laboratory Results - last 24 hr 08/14/23 08/15/23 08/15/23 23:12 00:23 04:25 WBC 11.8 H 12.1 H RBC 3.77 L 3.94 L Hgb 10.4 L 10.8 L Hct 31.0 L 32.7 L MCV 82.4 82.9 MCH 27.5 27.4 MCHC 33.4 33.1 RDW 13.8 13.4 Plt Count 292 285 Neut % (Auto) 72.3 77.8 H Lymph % (Auto) 18.7 L 14.4 L [place] % (Auto) 7.1 6.9 Eos % (Auto) 0.8 L 0.5 L Baso % (Auto) 1.1 0.4 Neut # (Auto) 8600 H 9400 H Lymph # (Auto) 2200 1700 [place] # (Auto) 800 800 Eos # (Auto) 100 100 Baso # (Auto) 100 100 ESR 80 H D-Dimer 615 H Sodium 134 L 136 L Potassium 4.6 4.0 Chloride 97 L 97 L Carbon Dioxide 28 28 BUN 28 H 25 H Creatinine 0.85 0.68 Estimated GFR > 60 > 60 BUN/Creatinine Ratio 32.9 H 36.8 H Glucose 131 H 208 H Hemoglobin A1c > 14.0 H Lactate 1.1 Calcium 9.2 8.6 Magnesium 1.9 Total Bilirubin 0.2 AST 20 ALT 27 Alkaline Phosphatase 106 Total Creatine Kinase 25 L Troponin I < 0.012 C-Reactive Protein 4.6 H NT-Pro-B Natriuret Pep 718 H Total Protein 7.2 Albumin 3.6 Globulin 3.6 Albumin/Globulin Ratio 1.0 Procalcitonin 0.12 Urine RBC None seen Urine WBC None seen Ur Squamous Epith Cells 0-1 /hpf Urine Bacteria None seen Ur Culture Indicated? Cult not indicated [facility] Medical History Retinopathy Neuropathy Hypothyroidism Diabetes Social History household members: none Tobacco & Substance Use Smoking Status: Never smoker alcohol intake: never Assessment & Plan Assessment and plan (1) Diabetic foot ulcer associated with diabetes mellitus due to underlying condition: Status: Acute (2) Cellulitis of foot, right: Status: Acute (3) Type 2 diabetes mellitus with diabetic polyneuropathy: Status: Acute (4) Non-pressure chronic ulcer of other part of right foot with fat layer exposed: Status: Acute Plan Have recommended sharp surgical debridement (CPT 91578). Details including possible complications were discussed with the patient. She appeared to understand and agreed to proceed. Sharp debridement was performed at the bedside with the use of a #3 Curette. Skin and subcutaneous tissue were debrided and devitalized tissue was removed. A total of 3.0 x 2.5 cm area was sharply debrided. Hemostasis was achieved with direct pressure. Dressing with Hydrofera blue was then applied. The patient tolerated the procedure well without any significant discomfort. Recommend dressing changes with Hydrofera blue every other day, postop surgical shoe for pressure offloading, elevation of right leg, continue antibiotic therapy. Wound cultures obtained today. Also recommend obtaining arterial Doppler ultrasound to assess circulation. Follow up at wound center after discharge. Time Spent With Patient Time with patient: 50 to 69 minutes with 50% spent counseling/coordinating care
--- NOTE | 2023-08-15 14:02 | DI.US.S_ITS ---
PROCEDURE: US ARTERIAL DUPLEX LE RT INDICATIONS: DIABETIC FOOT ULCER TECHNIQUE: Color and pulse Doppler interrogation was performed of the right lower extremity arterial system, with image documentation. COMPARISON: None. FINDINGS: Common femoral artery: 117.6 cm/sec, with biphasic flow (above baseline). Deep femoral artery: 122.2 cm/sec, with monophasic flow. Proximal superficial femoral artery: 128 cm/sec, with monophasic flow. Mid superficial femoral artery: 41 point cm/sec, with monophasic flow. Distal superficial femoral artery: 51.5 cm/sec, with monophasic flow. Popliteal artery: 57.8 cm/sec, with monophasic flow. Posterior tibial artery: 47.4 cm/sec, with monophasic flow. Anterior tibial artery/dorsalis pedis: 54.4 cm/sec, with monophasic flow. Michael-scale imaging description: Scattered atherosclerotic calcification IMPRESSION: Right common femoral artery is biphasic (above baseline). Remainder of the arterial vasculature is monophasic. No velocity shift to suggest a hemodynamically significant stenosis. Findings may represent sequela of aortoiliac inflow disease. A CTA lower extremity runoff may be helpful for further evaluation. Dictated by: Tristan Last M.D. on 08/15/2023 at 17:10 Approved by: Tristan Last M.D. on 08/15/2023 at 17:13
[2023-08-15] MEDS: SENNOSIDES 8.6 MG TABLET 17.2 MG PO (21:00)
[2023-08-15] MEDS: ACETAMINOPHEN 325 MG TABLET 650 MG PO (21:18)
[2023-08-15] MEDS: INSULIN GLARGINE 100 UNIT/ML 3ML PEN 20 UNIT SUBCUT (21:26)
[2023-08-16] VITALS: BP 150/73; PULSE 89; RESP 17; TEMP 36.7; O2SAT 97
[2023-08-16] MEDS: VANCOMYCIN 750 MG/150 ML PIGGYBACK 150 MG IV ×2 (01:00→10:01)
[2023-08-16 04:00] VITALS: BP 121/62; PULSE 70; RESP 16; TEMP 36.5; O2SAT 96
[2023-08-16 05:04] LABS: NT-proBNP (BNP-Adult 18+) 1070 pg/mL (<125)
[2023-08-16] MEDS: PIPERACILLIN/TAZO 4.5 GM in SODIUM CHLORIDE 0.9% 100 ML IV ×2 (05:15→12:20)
[2023-08-16] MEDS: PANTOPRAZOLE DR 20 MG TABLET PO (05:15)
[2023-08-16] MEDS: VANCOMYCIN TROUGH 1 REQUEST MISC (07:15)
[2023-08-16 07:51] LABS: Vancomycin Trough 18.7 ug/mL (10-20)
[2023-08-16 08:00] VITALS: BP 160/73; PULSE 89; RESP 20; TEMP 36.8; O2SAT 98
--- NOTE | 2023-08-16 08:22 | PM.PN.1 ---
Subjective Subjective Interval history: Her blood sugars were high yesterday, they are lower today. She had difficulty sleeping last night and was agitated, she feels better now. Her legs are still swollen. She underwent debridement of her great toe ulcer yesterday. She denies chest pain, or shortness of breath. Exam Vital Signs (past 8 hours): - 08/16/23 04:00 Temperature 97.7 F Pulse Rate 70 Respiratory Rate 16 Blood Pressure 121/62 Pulse Oximetry 96 Oxygen Flow Rate 0 Oxygen Delivery Method Room Air Oxygen Flow Rate 0 Narrative Exam Narrative: Alert and oriented, fluent speech. No distress. Lungs are clear with normal effort. Heart is regular, without murmur. Abdomen is soft, non-tender. Legs with gross edema bilaterally. Great toe is wrapped and not inspected. Wound Care is following. It was debrided yesterday. Objective Imaging Echo: Radiologist's impression: Normal sinus rhythm. Normal LV size and mildly increased wall thickness. Normal wall motion and LV systolic function. Ejection fraction 60-65%. Stage II diastolic dysfunction. There is aneurysmal interatrial septum but without obvious PFO based on color- flow Doppler. Normal chamber sizes. Aortic valve leaflets are mildly thickened and calcified. Otherwise there are no significant valvular abnormalities. No prior study available for comparison. Leg artial US: Radiologist's impression: IMPRESSION: Right common femoral artery is biphasic (above baseline). Remainder of the arterial vasculature is monophasic. No velocity shift to suggest a hemodynamically significant stenosis. Findings may represent sequela of aortoiliac inflow disease. A CTA lower extremity runoff may be helpful for further evaluation. CT scan - chest: Radiologist's impression: IMPRESSION: 1. No pulmonary embolism identified. 2. Enlargement of the main pulmonary artery, a finding which can be seen in the setting of pulmonary hypertension. 3. Findings compatible with pulmonary edema. 4. Few pulmonary nodules are present. Follow-up CT chest recommended in 3-6 months per Fleischner society guidelines. 5. Possible wall thickening mid and lower esophagus, nonspecific, correlation for etiologies such as reflux esophagitis may be helpful Labs 08/15/23 04:25 08/15/23 04:25 Labs: Laboratory Results - last 24 hr 08/16/23 08/16/23 04:13 07:22 NT-Pro-B Natriuret Pep 1070 H Vancomycin Trough 18.7 PFSH Medical History Retinopathy Neuropathy Hypothyroidism Diabetes Social History household members: none Smoking Status: Never smoker alcohol intake: never Assessment & Plan Assessment & Plan narrative: 1. Cellulitis of foot, right, POA and active. Blood cultures negative. 2. Diabetic foot ulcer associated with diabetes mellitus, POA and active. Wound culture pending. 3. Leg and pulmonary edema (acute diastolic heart failure), POA and active. Check urine for protein. 4. IDDM2, POA and active. -Cont IV abx (Zosyn and Vanco). Nares MRSA screen today. -Wound care (completed debridement 08/15). Ongoing wound care. Atrerial US normal. -ECHO to assess LVEF, normal EF found. -IV lasix for diuresis, increase dose. Time Spent With Patient Time with patient: 30 to 49 minutes with 50% spent counseling/coordinating care
[2023-08-16] MEDS: FUROSEMIDE 40 MG/4 ML VIAL 60 MG IV ×2 (08:59→20:41)
[2023-08-16] MEDS: ENOXAPARIN 40 MG/0.4 ML SYRINGE SUBCUT (09:00)
[2023-08-16] MEDS: THYROID, PORK 30 MG TABLET 90 MG PO (09:00)
[2023-08-16] MEDS: METOPROLOL IR 25 MG TABLET 12.5 MG PO ×2 (09:01→20:51)
[2023-08-16 11:21] VITALS: BP 137/52; PULSE 76; RESP 16; TEMP 36.8
[2023-08-16] MEDS: INSULIN LISPRO 100 UNIT/ML 3ML VIAL SUBCUT ×3 (12:16→20:43)
[2023-08-16 12:36] LABS: MRSA (Nasal) PCR Not Detected (Not Detect)
--- NOTE | 2023-08-16 13:33 | CM.DANOTE ---
Reviewed EMR and team rounds for pt's medical status and anticipated home d/c needs. Met with pt at bedside to introduce self and role. Pt was found to be alert, oriented, able to fully participate in this visit. Payor: [facility] PCP: Suha Marie Pt is a 58 year-old F admitted after presenting to the ED on 08/14 for worsening R-toe infection. Pt is a diabetic, states that she had a small blister from a new pair of shoes that she bought that became progressively more painful, red, with red beginning to creep over her foot and up into her leg. She resides alone, is employed as a caregiver, and worries how long she will remain off of work and the potential to lose her insurance if she doesn't maintain a certain amount of hours per month. This BEET FLUMER provided information re: the process of applying for and obtaining short-term disability, and advised that she contact her employer to ask them what they do offer in terms of STD. DCP to cont. to follow evolving care plan and potential d/c needs over the next few days. No further needs indicated at this time. Discharge Planning/Care Management CM Discharge Assessment Start: 08/16/23 13:24 Freq: Status: Active Protocol: Document 08/16/23 13:25 DPL (Rec: 08/16/23 13:32 DPL [id number]) Discharge Planning Assessment Assigned Records Management Clerk PRIMITIVO Golden Advance Directives? No History Provided By Patient,Medical Record Has Patient been admitted in last 30 No days? Prior Living Arrangements Mobile home Household Members none Type of transporation used prior to Drives own vehicle admit Independent with ADL's Yes Is patient alert and oriented? Yes Caregiver for Another No Comment N/A Comment Pending effectiveness of ABO's and OP woundcare recommendations. Barriers to Discharge No Discharge Plan Home Transportation Arrangement Pending recommendations. Cont. to follow. Referrals Initiated None needed Additional Comment BEET FLUMER did provide information for her questions re: short- term disabilty, no further needs indicated at this time. Whiteboard Updated in Patient Room with Yes name and ext. # of Records Management Clerk Review Status In Process Please Provide Date Initial DC 08/16/23 Assessment Was Performed
[2023-08-16 14:48] VITALS: BP 121/55; PULSE 76; RESP 16; TEMP 36.6; O2SAT 99
--- NOTE | 2023-08-16 17:41 | PC.NURSE ---
Day shift: R great toe wound dressing changed after shower today. Hydrofera blue + optifoam. Pt denies pain. Wound looks unchanged since after debridement yesterday. BLEs still 3-4+ pitting edema. BGs ranging from 86-327 today. Gave diabetes education about short acting insulin administration. Independent in room. MD did CHF education today. Will continue to monitor.
[2023-08-16 20:00] VITALS: BP 141/63; PULSE 83; RESP 17; TEMP 36.6; O2SAT 96
[2023-08-16] MEDS: PIPERACILLIN/TAZO 3.375 GM in SODIUM CHLORIDE 0.9% 100 ML IV (20:42)
[2023-08-16] MEDS: INSULIN GLARGINE 100 UNIT/ML 3ML PEN 20 UNIT SUBCUT (20:42)
[2023-08-16] MEDS: SENNOSIDES 8.6 MG TABLET 17.2 MG PO (20:42)
[2023-08-16] MEDS: ACETAMINOPHEN 325 MG TABLET 650 MG PO (22:48)
[2023-08-17] VITALS: BP 106/50; PULSE 56; RESP 20; TEMP 36.7; O2SAT 97
[2023-08-17 04:00] VITALS: BP 146/69; PULSE 77; RESP 16; TEMP 36.4; O2SAT 96
[2023-08-17] MEDS: PIPERACILLIN/TAZO 3.375 GM in SODIUM CHLORIDE 0.9% 100 ML IV ×2 (04:22→13:13)
[2023-08-17] MEDS: ACETAMINOPHEN 325 MG TABLET 650 MG PO ×2 (04:22→21:32)
[2023-08-17] MEDS: PANTOPRAZOLE DR 20 MG TABLET PO (07:42)
[2023-08-17] MEDS: METOPROLOL IR 25 MG TABLET 12.5 MG PO ×2 (08:30→20:28)
[2023-08-17] MEDS: ARMOUR THYROID 90 MG 1 EACH PO (08:31)
[2023-08-17] MEDS: FUROSEMIDE 40 MG/4 ML VIAL 60 MG IV ×2 (08:32→20:20)
[2023-08-17 08:38] VITALS: BP 154/73; PULSE 75; RESP 16; TEMP 36.4; O2SAT 97
--- NOTE | 2023-08-17 08:47 | PM.PN.1 ---
Subjective Subjective Date Patient Seen: 08/17/23 Interval history: She is seen in her room today to follow-up her GBS/strep foot infection. She continues with significant 2+ lower extremity edema. Her last labs from 08/15 are reviewed. The A1c was greater than 14. We will repeat her CBC and CMP tomorrow. We will change her to oral Keflex today in anticipation of discharge home off the IV Zosyn tomorrow. Her blood pressure is quite 154/73. She asked me to return to her room for a 2nd visit later today and presents a theory of inflammation in her legs, accounting for the increased edema. We discussed that her increased oral intake of fluid is panfilo the effect of the Lasix. She feels that she is dehydrated but does not appear so to me. We talked about her various areas of diabetes treatment, edema treatment, etc. she tends to be quite tangential and individualistic in her understanding of health but with patience she does acknowledge and usually agree to the traditional treatments such as taking insulin and Lasix and decreasing her oral fluid intake. She would prefer to take herbs, turmeric, etc. Exam Vital Signs (past 8 hours): - 08/17/23 04:00 08/17/23 08:38 Temperature 97.5 F L 97.5 F L Pulse Rate 77 75 Respiratory Rate 16 16 Blood Pressure 146/69 H 154/73 H Pulse Oximetry 96 97 Oxygen Delivery Method Room Air Oxygen Flow Rate 0 Narrative Exam Narrative: Heart is regular rate and rhythm no murmur Lungs are clear to auscultation bilaterally She has 2+ pitting edema with normal color on her lower legs. The right large toe swelling has diminished. The dressing is in place. She is very talkative, fully oriented and somewhat tangential in her theories about health and wellness. Objective Labs 08/15/23 04:25 08/15/23 04:25 Labs: Laboratory Results - last 24 hr 08/16/23 10:40 Nasal Screen MRSA (PCR) Not detected [facility] Medical History Retinopathy Neuropathy Hypothyroidism Diabetes Social History household members: none Smoking Status: Never smoker alcohol intake: never Assessment & Plan Assessment & Plan narrative: 1. Cellulitis of foot, right, POA and active. Blood cultures negative. 2. Diabetic foot ulcer associated with diabetes mellitus, POA and active. Wound culture GBS. 3. Leg and pulmonary edema (acute diastolic heart failure), POA and active. 4. IDDM2, POA and active. -For GBS change to oral Keflex and plan discharge on 08/18. -Wound care (completed debridement 08/15). Ongoing wound care. Arterial US normal. -ECHO was done to assess LVEF, normal EF found. -IV lasix for diuresis, increase dose. Disposition is likely to return home on 08/18 with oral Keflex.
[2023-08-17 11:55] VITALS: BP 138/59; PULSE 77; RESP 19; TEMP 36.4; O2SAT 98
[2023-08-17] MEDS: INSULIN LISPRO 100 UNIT/ML 3ML VIAL SUBCUT ×3 (13:14→20:47)
[2023-08-17 15:00] VITALS: BP 154/68; PULSE 89; RESP 18; TEMP 36.4; O2SAT 99
[2023-08-17 20:00] VITALS: BP 149/66; PULSE 88; RESP 17; TEMP 36.6; O2SAT 99
[2023-08-17] MEDS: cephALEXin 250 MG CAPSULE 500 MG PO (20:26)
[2023-08-17] MEDS: SENNOSIDES 8.6 MG TABLET 17.2 MG PO (20:27)
[2023-08-17] MEDS: INSULIN GLARGINE 100 UNIT/ML 3ML PEN 20 UNIT SUBCUT (20:46)
[2023-08-18] VITALS: BP 141/60; PULSE 80; RESP 19; TEMP 36.3; O2SAT 99
[2023-08-18] MEDS: ACETAMINOPHEN 325 MG TABLET 650 MG PO ×2 (03:59→11:12)
[2023-08-18 04:00] VITALS: BP 132/59; PULSE 82; RESP 17; TEMP 36.1; O2SAT 95
[2023-08-18] MEDS: ARMOUR THYROID 90 MG 1 EACH PO (05:06)
[2023-08-18] MEDS: PANTOPRAZOLE DR 20 MG TABLET PO (05:06)
[2023-08-18 05:47] LABS: Alanine Aminotransferase 30 IU/L (<35); Albumin 3.3 g/dL (3.5-5.0); Albumin Globulin Ratio 0.9 (1.0-2.8); Alkaline Phosphatase 92 U/L (38-126); Aspartate Aminotransferase 25 IU/L (14-36); Bilirubin Total 0.1 mg/dL (0.2-1.3); Blood Urea Nitrogen 26 mg/dL (7-17); Calcium 8.6 mg/dL (8.4-10.2); Carbon Dioxide 30 mmol/L (22-32); Chloride 97 mmol/L (98-107); Estimated Glomerular Filt Rate > 60 mL/min (>60); Globulin 3.5 g/dL (1.7-4.1); Glucose 119 mg/dL (80-110); HEMOLYSIS < 15 (0-50); Potassium 3.5 mmol/L (3.4-5.1); Sodium 135 mmol/L (137-145); Total Protein 6.8 g/dL (6.3-8.2)
[2023-08-18 05:48] LABS: Hematocrit 29.3 % (36-46); Hemoglobin 9.8 g/dL (12.0-16.0); Mean Corpuscular HGB Conc 33.5 % (30-36); Mean Corpuscular Hemoglobin 27.8 PG (26-34); Mean Corpuscular Volume 83.2 fL (80-100); Platelet Count 331 X10^3/uL (150-400); Red Blood Cell Count 3.53 X10^6/uL (4.0-5.2); Red Cell Distribution Width 13.7 % (11.6-14.8); White Blood Cell Count 9.6 X10^3/uL (4.5-11.0)
[2023-08-18 08:00] VITALS: BP 150/73; PULSE 76; RESP 19; TEMP 36.3; O2SAT 98
[2023-08-18] MEDS: cephALEXin 250 MG CAPSULE 500 MG PO ×3 (08:24→17:32)
[2023-08-18] MEDS: FUROSEMIDE 40 MG/4 ML VIAL 60 MG IV (08:25)
[2023-08-18] MEDS: ENOXAPARIN 40 MG/0.4 ML SYRINGE SUBCUT (08:25)
[2023-08-18] MEDS: METOPROLOL IR 25 MG TABLET 12.5 MG PO (08:28)
[2023-08-18] MEDS: POTASSIUM CHLORIDE 20 MEQ TAB 40 MEQ PO (11:12)
[2023-08-18 12:00] VITALS: BP 139/59; PULSE 73; RESP 18; TEMP 36.2; O2SAT 98
[2023-08-18] MEDS: INSULIN LISPRO 100 UNIT/ML 3ML VIAL SUBCUT ×2 (13:12→17:29)
[2023-08-18 16:00] VITALS: BP 128/65; PULSE 85; RESP 19; TEMP 36.6; O2SAT 95
--- NOTE | 2023-08-18 16:03 | CM.DPC ---
DCP Continued: HOSE FINISHER reviewed EMR. Per provider, patient cleared to d/c today. Provider would like to follow for wound care. HOSE FINISHER entered room and introduced self and role. Patient resting in chair. Reports open to , and said that friend had worked with [facility] in past. Patient reports no additional needs at this time. Patient reports friend will leave soon to help transport home. Patient reports having plenty of friends and family in the area to assist with d/c needs, including meal prep/cleaning needs. Reports no other needs at this time. HOSE FINISHER spoke with Day from [facility]. Day agreed to review. HOSE FINISHER told Day that patient is d/c today. SILKE Palafox kindly agreed to place verbal read back order and fax initial referral information to [facility]. SILKE Palafox kindly agreed to assist in completion of face to face form. Plan: patient to d/c home today on oral antibiotics with friend to transport and additional friend/family support at home. [facility] to follow pending their acceptance. CM team will send d.c summary to [facility] when available. CM team will continue to follow closely. PRIMITIVO Macdonald
--- NOTE | 2023-08-18 16:10 | CM.DPNOTE ---
DCP: Sent referral over to [facility], PRIMITIVO [place], has spoken to [facility], and they are currently reviewing. Faxed over face sheet, face to face, orders, H&P, DC Summary pending. P: Patient is discharging home today, will need home health nursing, referral has been sent, [facility] is reviewing. Mary Guardado RN/Lubricating Specialist
--- NOTE | 2023-08-18 17:53 | PM.DS.1 ---
History of Present Illness History of Present Illness Date Patient Seen: 08/15/23 Time Patient Seen: 04:04 Chief complaint: rt foot issues, diabetic Narrative: The pt is a 58 yo poorly controlled diabetic who started having a blister on the outside of the her great toe about one month ago. She started to feel weak, chills and myalgias on the of this month and went to her local ER, [facility]. They said she was dehydrated and gave her some fluids and told her her blood sugars were way too high. She soaked the foot one day due to worsening swelling and said the blister and some tissue came off. She then went to an urgent care on the where she was started on augmentin which she has been taking. The whole foot now has become red and swollen she came [facility]. The pt has numbness in the foot, denies tobacco use, normally walks without assitive devices and her last A1C was >14 last month. Discharge Providers Provider Date of admission: 08/15/23 02:16 Discharge Date: 08/18/23 Primary care physician: JIE Gay Consults: 08/15/23 09:32 Consult to Dietitian, Adult Routine Comment: foot ulcer Reason For Exam: great toe ulcer Consult to Wound Care Routine Comment: Consulting Provider: [facility] 08/18/23 16:01 Consult to Home Health Routine Comment: Wound Care Needs Reason For Exam: Home Health computer forensic specialist provider: Marek Pena DO Summary Hospital Course Discharge Diagnosis: 1. Cellulitis of foot, right, POA and active. Blood cultures negative. 2. Diabetic foot ulcer associated with diabetes mellitus, POA and active. Wound culture GBS. Per Wound care: Recommend dressing changes with Hydrofera blue every other day, postop surgical shoe for pressure offloading, elevation of right leg, continue antibiotic therapy. 3. Leg and pulmonary edema (acute diastolic heart failure), POA and active. 4. IDDM2, POA and active. -For GBS change to oral Keflex and plan discharge on 08/18. Changed to po cefadroxil on dc for easier dosing over keflex. -Wound care (completed debridement 08/15). Ongoing wound care with HH. Arterial US normal. -ECHO was done to assess LVEF, normal EF found. -IV lasix for diuresis Hospital Course: Admitted for cellulitis of R foot and wound on great toe. Assess by Dr. Rebolledo wound care who debrided it and gave wound care orders. Cellulitis improved with abx. Discharged home with for qod dressing changes, po cefadroxil and will f/up in wound care clinic for ongoing management. Exam Vital Signs (past 8 hours): - 08/18/23 12:00 08/18/23 16:00 Temperature 97.2 F L 98 F Pulse Rate 73 85 Respiratory Rate 18 19 Blood Pressure 139/59 L 128/65 Pulse Oximetry 98 95 Oxygen Flow Rate 0 0 Oxygen Delivery Method Room Air Oxygen Flow Rate 0 Narrative Exam Narrative: Heart is regular rate and rhythm no murmur Lungs are clear to auscultation bilaterally She has 2+ pitting edema with normal color on her lower legs. The right large toe swelling has diminished. Very calloused toe with central wound on plantar surface with slough. Stage 2 pressure ulcer. She is very talkative, fully oriented and somewhat tangential in her theories about health and wellness. Objective Labs 08/18/23 04:31 08/18/23 04:31 Labs: Laboratory Results - last 24 hr 08/18/23 04:31 WBC 9.6 RBC 3.53 L Hgb 9.8 L Hct 29.3 L MCV 83.2 MCH 27.8 MCHC 33.5 RDW 13.7 Plt Count 331 Sodium 135 L Potassium 3.5 Chloride 97 L Carbon Dioxide 30 BUN 26 H Creatinine 0.52 Estimated GFR > 60 BUN/Creatinine Ratio 50.0 H Glucose 119 H Calcium 8.6 Total Bilirubin 0.1 L AST 25 ALT 30 Alkaline Phosphatase 92 Total Protein 6.8 Albumin 3.3 L Globulin 3.5 Albumin/Globulin Ratio 0.9 L [facility] Medical History Retinopathy Neuropathy Hypothyroidism Diabetes Social History household members: none Smoking Status: Never smoker alcohol intake: never Discharge Plan Discharge Plan Patient Disposition: Home Health Service Discharge orders & Medications Prescriptions: New cefadroxil 500 mg capsule 500 mg PO BID 3 Days Qty: 6 0RF Rx Instructions: start evening of 08/18 Continued thyroid (pork) [[place] Thyroid] 90 mg tablet 90 mg PO DAILY Patient Comments: pt states she has not taken for 3 days because it gives her anxiety. B Complex-Vitamin B12 See Protocol PO DAILY Protocol: TITRATE PER PROTOCOL metformin 500 mg Tablet 500 mg PO BID insulin glargine [Lantus Solostar U-100 Insulin] 100 unit/mL (3 mL) insulin pen 20 unit SUBCUT ONCE PM Humalog KwikPen Insulin 200 unit/mL (3 mL) insulin pen See Protocol SUBCUT ACHS Protocol: TITRATE PER PROTOCOL Patient Comments: inject 10 units subcutaneously as directed inject 5 units subcuta... (REFER TO PRESCRIPTION NOTES). [place]'s wort 300 mg Tablet 300 mg PO DAILY Follow up/Referrals: Ritu Childress FNP-C [Primary Care Provider] - 1 Week Visit Report/Discharge Packet Stand Alone Forms: Congestive Heart Failure, Patient Portal/API, Stroke Signs & Symptoms Discharge Data Primary Care Provider: Ritu Childress
--- NOTE | 2023-08-18 18:07 | PC.NURSE ---
pt alert and oriented, up in chair for all meals-calls appr for [facility]ba to [facility]. drsg to right great toe changed per orders-no open skin, dry round area with tiny amounts of black- pt jacque well-md here and took photo. pt dc'd written and verbal intsructions given . HH set up and also sent her with drsg changed if needed.
--- NOTE | 2023-08-19 09:14 | CM.DPC ---
DCP Continued: RN ANTE PARTUM spoke with Suha at [facility]. Confirms can accept patient for wound care needs. CM Desizing Machine Operator Beth will fax d/c summary when available. CM team will continue to follow as needed. PRIMITIVO Macdonald
== END 2023-08-18 17:45 | disposition home health service (06) | DRG 622 ==
LOC: ED 08-15 02:02 → AC 08-15 02:17
PROVIDERS: Family Medicine; Hospitalist; Admitting Provider Internal Medicine; Emergency Provider Emergency Medicine; PCP Registered Nurse; Referring Provider Emergency Medicine; Visit Provider Internal Medicine
DX: E11.621 Type 2 diabetes mellitus with foot ulcer (principal); I50.31 Acute diastolic (congestive) heart failure; L03.115 Cellulitis of right lower limb; L97.512 Non-pressure chronic ulcer of other part of right foot with fat layer exposed; E11.42 Type 2 diabetes mellitus with diabetic polyneuropathy; B95.1 Streptococcus, group B, as the cause of diseases classified elsewhere; Z79.84 Long term (current) use of oral hypoglycemic drugs; Z79.4 Long term (current) use of insulin
CPT/HCPCS: 11042; 36415; 71045; 71275; 73630; 80048; 80053; 80202; 81003; 81015; 82550; 82962; 83036; 83605; 83735; 83880; 84145; 84484; 85025; 85027; 85379; 85651; 86140; 87040; 87070; 87075; 87077; 87147; 87205; 87797; 93005; 93010; 93306; 93926; 96365; 96366; 96367; 96375; 99233; 99284; J1650; J1815; J1940; J2543; Q9967

== ENCOUNTER → 2023-08-21 08:56 | Outpatient (CLI) | payer OTHER, MEDICAID, SELFPAY ==
[2023-08-15 03:18] VITALS: BMI 27.3
== END ==
PROVIDERS: PCP Registered Nurse; Referring Provider Student in an Organized Health Care Education/Training Program; Visit Provider Surgery
DX: E11.621 Type 2 diabetes mellitus with foot ulcer (principal); L97.512 Non-pressure chronic ulcer of other part of right foot with fat layer exposed; E11.42 Type 2 diabetes mellitus with diabetic polyneuropathy; R60.0 Localized edema
CPT/HCPCS: 11042; 99214

== ENCOUNTER → 2023-08-28 14:41 | Outpatient (CLI) | payer OTHER, MEDICAID, SELFPAY ==
[2023-08-15 03:18] VITALS: BMI 27.3
== END ==
PROVIDERS: PCP Registered Nurse; Referring Provider Student in an Organized Health Care Education/Training Program; Visit Provider Surgery
DX: E11.621 Type 2 diabetes mellitus with foot ulcer (principal); L97.512 Non-pressure chronic ulcer of other part of right foot with fat layer exposed; E11.40 Type 2 diabetes mellitus with diabetic neuropathy, unspecified; R60.0 Localized edema; L84 Corns and callosities
CPT/HCPCS: 11042; 99212; 99213

== ENCOUNTER → 2023-09-04 14:55 | Outpatient (CLI) | payer OTHER, SELFPAY ==
[2023-08-15 03:18] VITALS: BMI 27.3
--- NOTE | 2023-09-04 14:56 | DI.CT.S_ITS ---
PROCEDURE: CT ANGIO ABD AORTA RUNOFF INDICATIONS: non-healing diabetic ulcer on right great toe TECHNIQUE: After the administration of intravenous contrast, 2.5 mm sections acquired from T12 to the feet, with optional delayed image acquisition from the knees to the feet. 3-dimensional maximum intensity projection (MIP) coronal and sagittal reformats, and/or 3-dimensional volume rendering reformatting was then performed. For radiation dose reduction, the following was used: automated exposure control. COMPARISON: [facility], CT, CT ANGIO CHEST PE PROTOCOL, 08/15/2023, 1:11. FINDINGS: Image quality: Excellent. Extravascular tissues: Mild right basilar pleural effusion with associated compressive atelectasis in the right lung base. Heart size is normal. There is a diffusely enhancing 3 cm left lobe liver lesion, potentially representing flash filling of a hemangioma. No other masses identified. Hepatomegaly, measuring 23.7 cm. Gallbladder is unremarkable without calcified gallstones noted . Biliary system is non dilated. Pancreas enhances normally. There is mild dilatation of the pancreatic duct. Spleen is normal in size and enhancement. No adrenal nodules. Kidneys are normal in size and enhancement, without hydronephrosis. Moderate rectal fecal impaction. Large diffuse fecal load. No free fluid or air. No retroperitoneal or mesenteric adenopathy. No ventral hernias. Bladder wall thickness is normal. Small fat containing left inguinal hernia. No inguinal adenopathy. No suspicious bony lesions. No vertebral body compression fractures. Fibroid uterus. Abdominal aorta: Unremarkable Right lower extremity: Common iliac, external iliac, and common femoral are patent. There is a less than 50% proximal SFA stenosis. SFA is diffusely diseased. There is mild diffuse popliteal disease. Anterior tibial occluded. Posterior tibial and peroneal are likely patent. Diffuse lower extremity edema. Left lower extremity: Common iliac, external iliac, and common femoral are patent. Mild diffuse SFA disease. Mild popliteal disease. Anterior tibial occluded. Posterior tibial and peroneal are likely patent. Diffuse lower extremity edema. IMPRESSION: 1. No aortoiliac stenotic disease. 2. Right lower extremity runoff significant for a less than 50% proximal SFA stenosis, mild diffuse popliteal disease, and 2 vessel runoff. 3. Left lower extremity runoff significant for mild diffuse SFA disease and popliteal disease, and 2 vessel runoff. 3. Bilateral lower extremity edema. 4. Fibroid uterus. 5. 3 cm homogeneously enhancing left lobe liver lesion, potentially a hemangioma. 6. Small right pleural effusion and associated right basilar atelectasis. 7. Hepatomegaly. 8. Moderate rectal fecal impaction, large fecal load. Comment: Consider evaluation of the liver lesion with ultrasound. Dictated by: Marc Griggs M.D. on 09/04/2023 at 16:04 Approved by: Marc Griggs M.D. on 09/04/2023 at 16:17
--- NOTE | 2023-09-04 14:56 | DI.MRI.S_ITS ---
PROCEDURE: MR FOOT RT WO/W CON INDICATIONS: Eval for osteo Right Hallux big toe TECHNIQUE: Noncontrast coronal T1 spin echo and STIR, sagittal T1 spin echo with fat saturation and STIR, axial T1 spin echo and T2 fast spin echo with fat saturation. After the administration of contrast, axial/sagittal/coronal T1 spin echo with fat saturation through the right forefoot. COMPARISON: None. FINDINGS: Image quality: Excellent. Imaging findings show decreased signal and contrast enhancement involving the right 1st distal phalanx consistent with osteomyelitis. Also present to a lesser extent is some decreased signal and contrast enhancement within the l right 1st proximal phalanx also consistent with osteomyelitis. There is moderate to marked increased signal in the subcutaneous tissues of the forefoot consistent with a cellulitis type pattern. There is also a myositis type pattern involving musculature. No soft tissue mass is identified. I do not see focal fluid collection to suggest abscess. Remainder of the marrow signal appears within normal limits. IMPRESSION: 1. Findings consistent with osteomyelitis involving the distal phalanx of the right great toe and to a lesser extent the proximal phalanx of the great toe. 2. Associated contrast enhancement in the areas of osteomyelitis. 3. Moderate to marked increased signal and contrast enhancement in the subcutaneous tissues involving the right forefoot consistent with a cellulitis type pattern without definite focal abscess identified at the present time. 4. Increased signal and contrast enhancement within the musculature of the forefoot consistent with a myositis type pattern. Dictated by: Melo Daniel M.D. on 09/04/2023 at 17:11 Approved by: Melo Daniel M.D. on 09/04/2023 at 17:18
== END ==
PROVIDERS: PCP Registered Nurse; Referring Provider Surgery; Visit Provider Surgery
DX: E11.621 Type 2 diabetes mellitus with foot ulcer; L97.519 Non-pressure chronic ulcer of other part of right foot with unspecified severity; I70.209 Unspecified atherosclerosis of native arteries of extremities, unspecified extremity; R60.0 Localized edema; D25.9 Leiomyoma of uterus, unspecified; K76.9 Liver disease, unspecified; J90 Pleural effusion, not elsewhere classified; J98.11 Atelectasis; K56.41 Fecal impaction
CPT/HCPCS: 73720; 75635; A9579; Q9967

== ENCOUNTER → 2023-09-04 15:02 | Outpatient (CLI) | payer OTHER, MEDICAID, SELFPAY ==
[2023-08-15 03:18] VITALS: BMI 27.3
== END ==
PROVIDERS: PCP Registered Nurse; Referring Provider Student in an Organized Health Care Education/Training Program; Visit Provider Surgery
DX: E11.621 Type 2 diabetes mellitus with foot ulcer (principal); L97.519 Non-pressure chronic ulcer of other part of right foot with unspecified severity; I70.209 Unspecified atherosclerosis of native arteries of extremities, unspecified extremity; R60.0 Localized edema; D25.9 Leiomyoma of uterus, unspecified; K76.9 Liver disease, unspecified; J90 Pleural effusion, not elsewhere classified; J98.11 Atelectasis; K56.41 Fecal impaction; L97.512 Non-pressure chronic ulcer of other part of right foot with fat layer exposed; L84 Corns and callosities; L08.9 Local infection of the skin and subcutaneous tissue, unspecified; E11.65 Type 2 diabetes mellitus with hyperglycemia; E11.40 Type 2 diabetes mellitus with diabetic neuropathy, unspecified
CPT/HCPCS: 11042; 73720; 75635; A9579; Q9967

== ENCOUNTER → 2023-09-11 14:57 | Outpatient (CLI) | payer OTHER, MEDICAID, SELFPAY ==
[2023-08-15 03:18] VITALS: BMI 27.3
== END ==
PROVIDERS: PCP Registered Nurse; Referring Provider Student in an Organized Health Care Education/Training Program; Visit Provider Surgery
DX: L97.512 Non-pressure chronic ulcer of other part of right foot with fat layer exposed (principal); E11.621 Type 2 diabetes mellitus with foot ulcer; E11.42 Type 2 diabetes mellitus with diabetic polyneuropathy; R60.0 Localized edema
CPT/HCPCS: 11043; 99214

== ENCOUNTER → 2023-09-18 13:49 | Outpatient (CLI) | payer OTHER, SELFPAY ==
[2023-08-15 03:18] VITALS: BMI 27.3
== END ==
PROVIDERS: PCP Registered Nurse; Referring Provider Student in an Organized Health Care Education/Training Program; Visit Provider Surgery
DX: L97.512 Non-pressure chronic ulcer of other part of right foot with fat layer exposed (principal); E11.621 Type 2 diabetes mellitus with foot ulcer; E11.42 Type 2 diabetes mellitus with diabetic polyneuropathy; R60.0 Localized edema; L84 Corns and callosities
CPT/HCPCS: 11042

== ENCOUNTER → 2023-09-25 14:09 | Outpatient (CLI) | payer OTHER, SELFPAY ==
[2023-08-15 03:18] VITALS: BMI 27.3
== END ==
PROVIDERS: PCP Registered Nurse; Referring Provider Student in an Organized Health Care Education/Training Program; Visit Provider Surgery
DX: L97.512 Non-pressure chronic ulcer of other part of right foot with fat layer exposed (principal); E11.621 Type 2 diabetes mellitus with foot ulcer; E11.42 Type 2 diabetes mellitus with diabetic polyneuropathy; R60.0 Localized edema; M86.171 Other acute osteomyelitis, right ankle and foot; I73.9 Peripheral vascular disease, unspecified
CPT/HCPCS: 11042; 99212; 99213

== ENCOUNTER → 2023-10-02 15:23 | Outpatient (CLI) | payer OTHER, MEDICAID, SELFPAY ==
[2023-08-15 03:18] VITALS: BMI 27.3
== END ==
PROVIDERS: PCP Registered Nurse; Referring Provider Surgery; Visit Provider Surgery
DX: E11.621 Type 2 diabetes mellitus with foot ulcer (principal); L97.512 Non-pressure chronic ulcer of other part of right foot with fat layer exposed; E11.42 Type 2 diabetes mellitus with diabetic polyneuropathy; R60.0 Localized edema; L84 Corns and callosities
CPT/HCPCS: 11042

== ENCOUNTER → 2023-10-10 13:15 | Outpatient (CLI) | payer OTHER, MEDICAID, SELFPAY ==
[2023-08-15 03:18] VITALS: BMI 27.3
== END ==
PROVIDERS: PCP Registered Nurse; Referring Provider Student in an Organized Health Care Education/Training Program; Visit Provider Surgery
DX: L97.512 Non-pressure chronic ulcer of other part of right foot with fat layer exposed (principal); E11.621 Type 2 diabetes mellitus with foot ulcer; E11.42 Type 2 diabetes mellitus with diabetic polyneuropathy; R60.0 Localized edema; M86.171 Other acute osteomyelitis, right ankle and foot; I73.9 Peripheral vascular disease, unspecified
CPT/HCPCS: 99213